=== PATIENT | male | born 1970 | race Hispanic/Latino ===

== ENCOUNTER → 2017-03-16 | Outpatient (CLI) | payer BC ==
[~2017-03-16] MED LIST: BACTRIM DS TAB1 EACH PO; CEFUROXIME500 MG PO; CEPHALEXIN500 MG PO; COLACE100 MG PO; TYLENOL WITH C1 EACH PO; ZOFRAN ODT4 MG PO
--- NOTE | 2017-03-16 18:09 | Diagnostic Imaging Report ---
PROCEDURE:X-RAY ABDOMEN - KUB COMPARISON:[facility], DX, ABDOMEN-1VIEW (KUB), 12/08/2016, 13:47. INDICATIONS:LEFT KIDNEY REMOVED, PAIN FEW WEEKS FINDINGS: There is a non-obstructed bowel-gas pattern. There are no calcifications projected over the renal shadows, expected course of the ureters or bladder. The previously described radiopaque densities over the right renal shadow are not clearly seen on the current exam. There are no acute osseous abnormalities. Multiple metallic clips are again noted in the left medial abdomen, consistent with prior nephrectomy. CONCLUSION: Previously described radiopaque densities over the right renal shadow are not clearly seen on the current exam. No radiopaque densities project over the genitourinary system. Flex Anders M.D. Dictated by: Flex Anders M.D. on 03/16/2017 at 18:17 Electronically approved by: Flex Anders M.D. on 03/16/2017 at 18:17
== END ==
LOC: RAD 16:45
PROVIDERS: ATTEND Urology
DX: N20.0 Calculus of kidney (principal)
CPT/HCPCS: 74000

== ENCOUNTER → 2017-07-19 | Outpatient (CLI) | payer BC ==
--- NOTE | 2017-07-19 10:23 | Diagnostic Imaging Report ---
PROCEDURE: CT ABDOMEN AND PELVIS WITHOUT CONTRAST TECHNIQUE: The abdomen and pelvis were scanned utilizing a multidetector helical scanner from the diaphragm to the lesser trochanter. No oral or intravenous contrast was administered per renal stone protocol. Coronal and sagittal multiplanar reformations were obtained. COMPARISON: 10/06/2016. INDICATIONS: CALCULU OF THE KIDNEY FINDINGS: ABSENCE OF INTRAVENOUS CONTRAST DECREASES SENSITIVITY FOR DETECTION OF FOCAL LESIONS AND VASCULAR PATHOLOGY. LOWER THORAX: Subsegmental atelectasis in the dependent portions of the lower lobes. No pleural or pericardial effusion.. HEPATOBILIARY: No focal hepatic lesion or intrahepatic biliary ductal dilatation. The gallbladder is unremarkable. SPLEEN: Calcified granuloma within the spleen, unchanged. No splenomegaly. Small splenule in the hilum. PANCREAS: No focal mass or ductal dilatation. ADRENALS: No adrenal nodules. KIDNEYS/URETERS: Interval left nephrectomy. Stable appearance of 3.3 cm right upper pole cyst. Punctate nonobstructing right lower pole renal calculus. No hydronephrosis or hydroureter. No additional renal or ureteral calculi. PELVIC ORGANS/BLADDER: Unremarkable. PERITONEUM / RETROPERITONEUM: No free air or fluid. LYMPH NODES: No pelvic sidewall, retroperitoneal, or mesenteric lymphadenopathy. VESSELS: Limited evaluation without intravenous contrast. The abdominal aorta is non-aneurysmal. GI TRACT: The large bowel shows no evidence of distention or wall thickening. There are a few diverticula scattered along the descending and sigmoid colon without wall thickening or adjacent inflammatory change. The appendix is normal. There is no small bowel dilatation to suggest obstruction. BONES AND SOFT TISSUES: Postsurgical changes of the soft tissues of the left flank related to left nephrectomy, with associated deformity of the left 11th rib. No osseous destructive lesions. Multilevel degenerative disc changes and degenerative facet arthropathy of the lumbar spine with postsurgical change. IMPRESSION: Punctate nonobstructing right lower pole renal calculus. No additional renal, ureteral, or bladder calculi. Interval left nephrectomy with expected postsurgical changes. Dictated by: Felipe Perez M.D. on 07/19/2017 at 10:25 Electronically approved by: Felipe Perez M.D. on 07/19/2017 at 10:25
== END ==
LOC: CT 09:10
PROVIDERS: ATTEND Urology
DX: N20.0 Calculus of kidney (principal)
CPT/HCPCS: 74176

== ENCOUNTER → 2018-10-10 | Outpatient (CLI) | payer BC ==
--- NOTE | 2018-10-10 10:58 | Diagnostic Imaging Report ---
EXAM: Renal Ultrasound INDICATION: ^[id number] ^[id number] ^CALCULUS OF KIDNEY/CYST OF KIDNEY COMPARISON: None TECHNIQUE: Transverse and longitudinal images of the kidneys and bladder were obtained. FINDINGS: Right Kidney: Length: 14.4 cm Appearance: Normal echogenicity. Collecting system: No hydronephrosis Stones: None Cyst/Mass: Upper pole 4.7 x 3.7 x 3.7 cm anechoic simple cyst. Left Kidney: Status post left nephrectomy. Bladder: No mass or calculi. Prevoid volume estimate of 162.3 cc. Right ureteral jet seen. IMPRESSION: Status post left nephrectomy. No right renal calculi, mass, or hydronephrosis. Upper pole right renal simple cyst. Signed by: Tristan Clement MD on 10/10/2018 10:55 AM
--- NOTE | 2018-10-10 11:00 | Diagnostic Imaging Report ---
Exam: KUB - 2 views Clinical History: Renal calculi Comparison: Renal ultrasound of the same day. Findings: Surgical clips in the left abdomen status post left nephrectomy. No radiographically apparent renal calculi on the right. Degenerative changes of the lower lumbar spine with fused syndesmophytes. Nonobstructive bowel gas pattern. No free air. Impression: Status post left nephrectomy. No radiographically apparent right renal calculi. Signed by: Tristan Clement MD on 10/10/2018 10:57 AM
== END ==
LOC: US 09:34
PROVIDERS: ATTEND Urology
DX: N20.0 Calculus of kidney (principal); N28.1 Cyst of kidney, acquired
CPT/HCPCS: 74018; 76770